=== PATIENT | female | born 1995 | race Caucasian/White ===

== ENCOUNTER 2019-11-06 15:53 | Emergency (ER) | payer SELFPAY ==
[~2019-11-06] VITALS: Ht 154.9 cm; Wt 67.6 kg
[2019-11-06 17:00] LABS: PREG TEST PT QUAL NEGATIVE (NEG)
[2019-11-06] MEDS ORDERED: ORPHENADRINE CITRATE 60 MG/2 ML VIAL. IV ONE (17:00)
[2019-11-06] MEDS ORDERED: KETOROLAC 15 MG/ML VIAL. IVP ONE (17:00)
--- NOTE | 2019-11-06 17:00 | RAD ---
Exam: Right foot 3 views INDICATION: Pain status post fall TECHNIQUE: Frontal, lateral and oblique views of the right foot Comparisons: None FINDINGS: Bone mineralization is normal. No acute or healed fractures. Soft tissues are unremarkable. Joint spaces are well-maintained. IMPRESSION: No acute osseous abnormality. Electronically signed by: Zulema Sneed MD (11/06/2019 4:57 PM) [id number]
--- NOTE | 2019-11-06 17:03 | RAD ---
Exam: Left knee 3 views INDICATION: Pain status post fall TECHNIQUE: Frontal, lateral and oblique views of left knee Comparisons: None FINDINGS: Incompletely visualized intramedullary steven at the left femur with transfixing screws along the distal aspect. Bone mineralization is normal. No acute fracture. Soft tissues are unremarkable. Joint spaces are well-maintained. IMPRESSION: No acute osseous abnormality. Electronically signed by: Zulema Sneed MD (11/06/2019 5:00 PM) [id number]
--- NOTE | 2019-11-06 17:13 | RAD ---
Exam: CT head and cervical spine without contrast INDICATION: Pain status post fall TECHNIQUE: Sequential axial images through the head cervical spine were obtained without the administration of IV contrast. Comparisons: None FINDINGS: Head: No focal parenchymal lesion or hemorrhage is identified. There is no midline shift or sulcal effacement. No acute vascular territory infarction is identified. Poe-white distinction is preserved. The ventricular system is within normal limits without compression hydrocephalus. The basal cisterns are well maintained. The visualized portions of the paranasal sinuses and mastoid air cells are well-pneumatized. No acute fractures. Cervical spine: Vertebral body heights and alignment are well-maintained. Fracture to the cervical spine is not identified. No significant spondylotic change in the cervical spine. Visualized paraspinal soft tissues. IMPRESSION: 1. No acute intracranial abnormality. 2. Negative CT C-spine for acute traumatic injury. Exposure: One or more of the following in the visualized dose reduction techniques were utilized for this examination: 1. Automated exposure control 2. Adjustment of the MA and/or KV according to patient size Use of iterative of reconstructive technique Electronically signed by: Zulema Sneed MD (11/06/2019 5:10 PM) [email or web address]
--- NOTE | 2019-11-06 17:18 | RAD ---
CT of the chest without contrast: Clinical History: Pain status post fall. Axial helical images of the chest were obtained without contrast. Linear opacities along the minor fissure likely discoid atelectasis. There is no mediastinal or hilar lymphadenopathy. Impression: No significant findings. PQRS Compliance Statement: One or more of the following individualized dose reduction techniques were utilized for this examination: 1. Automated exposure control 2. Adjustment of the mA and/or kV according to patient size 3. Use of iterative reconstruction technique Electronically signed by: Dragan Segundo III, MD (11/06/2019 5:15 PM) [id number]
--- NOTE | 2019-11-06 17:32 | PHYS DOC ---
Past History Past Medical History: Anxiety, Depression, Other Additional Past Medical Histor: PTSD Past Surgical History: Other Additional Past Surgical Histo: bilat leg fx repair; shoulder fx repair Alcohol Use: None Adult General Chief Complaint Chief Complaint: MECHANICAL FALL HPI HPI Patient is a [age] year old [sex] who presents with [] Review of Systems Review of Systems Constitutional: Denies fever or chills [] Eyes: Denies change in visual acuity, redness, or eye pain [] HENT: Denies nasal congestion or sore throat [] Respiratory: Denies cough or shortness of breath [] Cardiovascular: No additional information not addressed in HPI [] GI: Denies abdominal pain, nausea, vomiting, bloody stools or diarrhea [] : Denies dysuria or hematuria [] Musculoskeletal: Denies back pain or joint pain [] Integument: Denies rash or skin lesions [] Neurologic: Denies headache, focal weakness or sensory changes [] Endocrine: Denies polyuria or polydipsia [] All other systems were reviewed and found to be within normal limits, except as documented in this note. Current Medications Current Medications Current Medications Medications (Trade) Dose Ordered Sig/Tiki Start Time Stop Time Status Last Admin Dose Admin Ketorolac Tromethamine (Toradol 15mg Vial) 15 mg 1X ONCE 11/06/19 17:00 11/06/19 17:01 DC 11/06/19 17:23 15 MG Orphenadrine Citrate (Norflex) 60 mg 1X ONCE 11/06/19 17:00 11/06/19 17:01 DC 11/06/19 17:20 60 MG Allergies Allergies Allergies Coded Allergies Type Severity Reaction Last Updated Verified No Known Drug Allergies 11/06/19 No Physical Exam Physical Exam Constitutional: Well developed, well nourished, no acute distress, non-toxic appearance. [] HENT: Normocephalic, atraumatic, bilateral external ears normal, oropharynx moist, no oral exudates, nose normal. [] Eyes: PERRLA, EOMI, conjunctiva normal, no discharge. [] Neck: Normal range of motion, no tenderness, supple, no stridor. [] Cardiovascular:Heart rate regular rhythm, no murmur [] Lungs & Thorax: Bilateral breath sounds clear to auscultation [] Abdomen: Bowel sounds normal, soft, no tenderness, no masses, no pulsatile masses. [] Skin: Warm, dry, no erythema, no rash. [] Back: No tenderness, no CVA tenderness. [] Extremities: No tenderness, no cyanosis, no clubbing, ROM intact, no edema. [] Neurologic: Alert and oriented X 3, normal motor function, normal sensory function, no focal deficits noted. [] Psychologic: Affect normal, judgement normal, mood normal. [] Current Patient Data Vital Signs Vital Signs Date Time Temp Pulse Resp B/P (MAP) Pulse Ox O2 Delivery O2 Flow Rate FiO2 11/06/19 17:24 71 16 112/77 (89) 98 Room Air 11/06/19 15:58 98.0 Lab Results Laboratory Tests Test 11/06/19 16:30 Serum Test, Qualitative Negative (NEG) EKG EKG [] Radiology/Procedures Radiology/Procedures [] Course & Med Decision Making Course & Med Decision Making Pertinent Labs and Imaging studies reviewed. (See chart for details) [] Dragon Disclaimer Dragon Disclaimer This electronic medical record was generated, in whole or in part, using a voice recognition dictation system. Departure Departure: Impression: Primary Impression: Fall Additional Impressions: Chest wall contusion Left knee sprain Right foot sprain Neck pain Disposition: HOME, SELF-CARE Condition: STABLE Patient Instructions: Cervical Strain and Sprain with Rehab-SportsMed, Chest Wall Pain, [id number]-[id number], Contusion, Idwf-us-Tupt, Crutch Use, Nykb-im-Togq, Fall Prevention and Home Safety, Mmlr-of-Plrf, Foot Sprain-Brief, Incentive Spirometer, Knee Sprain, Lcbt-tc-Oilc Scripts Orphenadrine Citrate (ORPHENADRINE CITRATE) 100 Mg Tablet.er 1 TAB PO BID PRN for MUSCLE PAIN, #14 TAB 0 Refills Prov: JILLIAN PERDOMO Say DO 11/06/19 Problem Qualifiers Primary Impression: Fall Encounter type: initial encounter Qualified Codes: W19.XXXA - Unspecified fall, initial encounter Additional Impressions: Chest wall contusion Encounter type: initial encounter Laterality: unspecified laterality Qualified Codes: S20.219A - Contusion of unspecified front wall of thorax, initial encounter Left knee sprain Encounter type: initial encounter Involved ligament of knee: unspecified ligament Qualified Codes: S83.92XA - Sprain of unspecified site of left knee, initial encounter Right foot sprain Encounter type: initial encounter Qualified Codes: S93.601A - Unspecified sprain of right foot, initial encounter JILLIAN PERDOMO DO Nov 06, 2019 17:32
[2019-11-06] MEDS ORDERED: ORPH-16 PO (17:36)
[2019-11-06 18:00] VITALS: BP 115/74
== END 2019-11-06 18:00 | disposition home or self-care (01) ==
LOC: ER 15:53
DX: S83.92XA Sprain of unspecified site of left knee, initial encounter (principal); S93.601A Unspecified sprain of right foot, initial encounter; S20.219A Contusion of unspecified front wall of thorax, initial encounter; M54.2 Cervicalgia; W10.8XXA Fall (on) (from) other stairs and steps, initial encounter; Y93.89 Activity, other specified; Y92.89 Other specified places as the place of occurrence of the external cause; Y99.8 Other external cause status
CPT/HCPCS: 70450; 71250; 72125; 73562; 73630; 84703; 96374; 96375; 99285; J1885; J2360

== ENCOUNTER → 2019-12-29 | Outpatient (CLI) | payer SELFPAY ==
[~2019-12-29] MED LIST: ORPH-16 PO
== END | disposition home or self-care (01) ==
LOC: LAB 14:47
PROVIDERS: ATTEND Obstetrics & Gynecology
DX: Z11.3 Encounter for screening for infections with a predominantly sexual mode of transmission (principal)
CPT/HCPCS: 86592; 86695; 86696; 86703; 86803; 87522